=== PATIENT | male | born 1990 | race Caucasian/White ===

== ENCOUNTER 2019-07-24 20:40 | Inpatient (IN) | payer OTHER ==
[~2019-07-24] VITALS: Ht 172.7 cm; Wt 88.5 kg
--- NOTE | 2019-07-24 21:17 | NUR ---
PACIENTE ALERTA Y ORIENTADO X3, CON BUEN PATRON RESPIRATORIO Y SIGNOS VITALES ESTABLES, REFIERE LEVE DOLOR EN AREA PELVICA. SE COLOCA EN CAMA HASTA SER EVALUADO POR .
--- NOTE | 2019-07-24 22:32 | NUR ---
PACIENTE ALERTA Y ORIENTADO X3. MANEJADO POR MIS. NEGRITO QUIEN ORIENTA A PACIENTE SOBRE TX Y PROCEDIMIENTO A REALIZAR Y REFIERE ENTENDER. REALIZA MUESTRAS DE LABORATORIO BAJO MEDIDAS ASEPTICAS. CANALIZACION PATENTE Y KIKI DE EDEMA Y ERITEMA. ADMINISTRA MEDICAMENTO GARRICK ORDEN MEDICA. SE MANTIENE BAJO OBSERVACION POR CAMBIOS SIGNIFICATIVOS. LE REALIZARON EKG GARRICK ORDEN MEDICA. PENDIENTE CULTIVO DE ORINA Y MUESTRA DE U/A. PENDIENTE PLACA PORTABLE.
== END 2019-08-03 20:09 | disposition home or self-care (01) | DRG 728 ==
LOC: ER 20:40 → SEC-K 23:31 → MEDI 23:31 → MEDJ 07-25 00:55 → MEDI 07-25 00:55 → SURH 07-27 12:46
PROVIDERS: ADMIT Internal Medicine
PROC: 05HB33Z Insertion of Infusion Device into Right Basilic Vein, Percutaneous Approach (ICD-10-PCS; principal; 2019-07-24)
PROC: 8E0ZXY6 Isolation (ICD-10-PCS; 2019-07-25)
PROC: BV44ZZZ Ultrasonography of Scrotum (ICD-10-PCS; 2019-07-26)
DX: N41.0 Acute prostatitis (principal)